=== PATIENT | male | born 1985 | race Caucasian/White ===

== ENCOUNTER 2018-12-24 16:17 | Emergency (ER) | payer BC ==
[~2018-12-24] VITALS: Ht 172.7 cm; Wt 115.7 kg
--- NOTE | ~2018-12-24 | EKG ---
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
[2018-12-24] MEDS ORDERED: NEXIUM40 MG PO (16:29)
[2018-12-24 17:03] LABS: BASO % 0.5 % (0.0-1.0); EOS # 0.3 10*3/uL (0.0-0.4); EOS % 3.1 % (1.0-4.0); HEMATOCRIT 45.7 % (42.0-52.0); HEMOGLOBIN 15.7 g/dl (14.0-18.0); LYMPH # 2.3 10*3/uL (1.3-4.4); LYMPH % 27.7 % (27.0-41.0); MEAN CELL VOLUME 89.3 fl (80.0-94.0); MEAN CORPUSCULAR HGB 30.7 pg (27.0-31.0); MEAN CORPUSCULAR HGB CONC 34.4 g/dl (33.0-37.0); MEAN PLATELET VOLUME 9.4 fl (9.6-12.3); MONO # 0.7 10*3/uL (0.1-1.0); MONO % 7.8 % (3.0-9.0); NEUT % 60.2 % (47.0-73.0); PLATELET COUNT AUTOMATED 236 10*3/uL (130-400); RED BLOOD COUNT 5.12 10*6/uL (4.50-5.90); RED CELL DISTRI WIDTH 12.6 % (0-14.5); WHITE BLOOD COUNT 8.4 10*3/uL (4.8-10.8)
[2018-12-24 17:14] LABS: ACT PARTIAL THROMBO TIME 27.9 SECONDS (20.0-32.1); INTERNATIONAL NORM RATIO 0.9 (2.0-3.5)
[2018-12-24 17:20] LABS: ALBUMIN 3.9 gm/dl (3.1-4.5); ALKALINE PHOSPHATASE 103 U/L (45-117); BUN 13 mg/dl (7-24); CHLORIDE 107 mmol/L (98-107); CREATININE 1.06 mg/dL (0.70-1.30); LIPASE 91 U/L (73-393); POTASSIUM 3.9 mmol/L (3.5-5.1); SGOT/AST 31 IU/L (3-35); SGPT/ALT 76 U/L (12-78); SODIUM 140 mmol/L (136-145)
[2018-12-24 17:37] LABS: NT-proBNP < 5.00 pg/mL (0-125); TROPONIN I < 0.015 ng/ml (<0.045)
== END 2018-12-24 18:44 | disposition home or self-care (01) ==
LOC: ED 16:17
PROVIDERS: Emergency Medicine
DX: R51 Headache (principal); R03.0 Elevated blood-pressure reading, without diagnosis of hypertension; Z79.899 Other long term (current) drug therapy

== ENCOUNTER 2018-12-30 12:21 | Emergency (ER) | payer OTHER, BC ==
[~2018-12-30] VITALS: Ht 172.7 cm; Wt 113.4 kg
[~2018-12-30 12:21] MED LIST: NEXIUM40 MG PO
[2018-12-30 12:53] LABS: BASO # 0.1 10*3/uL (0.0-0.1); BASO % 0.6 % (0.0-1.0); EOS # 0.3 10*3/uL (0.0-0.4); EOS % 3.3 % (1.0-4.0); HEMATOCRIT 48.7 % (42.0-52.0); HEMOGLOBIN 16.5 g/dl (14.0-18.0); LYMPH # 2.6 10*3/uL (1.3-4.4); LYMPH % 29.6 % (27.0-41.0); MEAN CELL VOLUME 90.5 fl (80.0-94.0); MEAN CORPUSCULAR HGB 30.7 pg (27.0-31.0); MEAN CORPUSCULAR HGB CONC 33.9 g/dl (33.0-37.0); MEAN PLATELET VOLUME 9.4 fl (9.6-12.3); MONO # 0.8 10*3/uL (0.1-1.0); MONO % 9.1 % (3.0-9.0); NEUT # 4.9 10*3/uL (2.3-7.9); NEUT % 56.1 % (47.0-73.0); PLATELET COUNT AUTOMATED 228 10*3/uL (130-400); RED BLOOD COUNT 5.38 10*6/uL (4.50-5.90); RED CELL DISTRI WIDTH 12.6 % (0-14.5); WHITE BLOOD COUNT 8.8 10*3/uL (4.8-10.8)
[2018-12-30 13:08] LABS: ALBUMIN 4.1 gm/dl (3.1-4.5); ALKALINE PHOSPHATASE 95 U/L (45-117); BUN 9 mg/dl (7-24); CHLORIDE 106 mmol/L (98-107); CREATININE 0.95 mg/dL (0.70-1.30); POTASSIUM 3.9 mmol/L (3.5-5.1); SGOT/AST 21 IU/L (3-35); SGPT/ALT 71 U/L (12-78); SODIUM 140 mmol/L (136-145); TOTAL PROTEIN 7.4 gm/dL (6.4-8.2)
== END 2018-12-30 14:11 | disposition home or self-care (01) ==
LOC: ED 12:21
PROVIDERS: Nurse Practitioner Family
DX: R51 Headache (principal); Z79.899 Other long term (current) drug therapy

== ENCOUNTER 2019-03-11 22:24 | Emergency (ER) | payer OTHER, BC ==
[~2019-03-11] VITALS: Ht 172.7 cm; Wt 117.9 kg
[2019-03-11 23:04] LABS: BILIRUBIN NEGATIVE (NEGATIVE); BLOOD NEGATIVE (NEGATIVE); CLARITY SL CLOUDY (CLEAR); COLOR YELLOW (YELLOW); GLUCOSE NEGATIVE (NEGATIVE); KETONE NEGATIVE (NEGATIVE); LEUKO ESTERASE NEGATIVE (NEGATIVE); NITRITE NEGATIVE (NEGATIVE); SPECIFIC GRAVITY >= 1.030 (1.005-1.030); UROBILINOGEN 0.2 E.U./dl (0.2-1.0)
[2019-03-11 23:14] LABS: MUCOUS TRACE
[2019-03-11 23:15] LABS: WBC 0-2 wbc/hpf (0-5)
[2019-03-11 23:22] LABS: BASO # 0.1 10*3/uL (0.0-0.1); BASO % 0.5 % (0.0-1.0); EOS # 0.2 10*3/uL (0.0-0.4); HEMOGLOBIN 15.7 g/dl (14.0-18.0); LYMPH % 30.9 % (27.0-41.0); MEAN CELL VOLUME 92.2 fl (80.0-94.0); MEAN CORPUSCULAR HGB 30.8 pg (27.0-31.0); MEAN CORPUSCULAR HGB CONC 33.4 g/dl (33.0-37.0); MEAN PLATELET VOLUME 9.5 fl (9.6-12.3); MONO # 0.8 10*3/uL (0.1-1.0); MONO % 8.3 % (3.0-9.0); NEUT # 5.7 10*3/uL (2.3-7.9); NEUT % 57.8 % (47.0-73.0); PLATELET COUNT AUTOMATED 237 10*3/uL (130-400); RED CELL DISTRI WIDTH 12.8 % (0-14.5); WHITE BLOOD COUNT 9.8 10*3/uL (4.8-10.8)
[2019-03-11 23:33] LABS: ALBUMIN 3.9 gm/dl (3.1-4.5); ALKALINE PHOSPHATASE 100 U/L (45-117); BUN 17 mg/dl (7-24); CHLORIDE 110 mmol/L (98-107); CREATININE 1.23 mg/dL (0.70-1.30); POTASSIUM 3.5 mmol/L (3.5-5.1); SGOT/AST 34 IU/L (3-35); SGPT/ALT 98 U/L (12-78); SODIUM 142 mmol/L (136-145); TOTAL PROTEIN 6.9 gm/dL (6.4-8.2)
[2019-03-12 00:15] LABS: LIPASE 86 U/L (73-393)
== END 2019-03-12 00:36 | disposition home or self-care (01) ==
LOC: ED 22:24
PROVIDERS: Emergency Medicine
DX: K52.9 Noninfective gastroenteritis and colitis, unspecified (principal); R10.9 Unspecified abdominal pain; Z87.442 Personal history of urinary calculi; Z79.899 Other long term (current) drug therapy

== ENCOUNTER → 2019-03-30 | Day surgery (SDC) | payer OTHER, BC ==
[~2019-03-30] VITALS: Ht 172.7 cm; Wt 117.9 kg
[2019-03-30 07:06] VITALS: BP 131/87
[2019-03-30 08:04] VITALS: BP 105/63
[2019-03-30 08:19] VITALS: BP 101/61
[2019-03-30 08:34] VITALS: BP 110/73
== END | disposition home or self-care (01) ==
LOC: SDC 03-26 09:30
DX: K21.9 Gastro-esophageal reflux disease without esophagitis (principal); I10 Essential (primary) hypertension; K30 Functional dyspepsia; E66.01 Morbid (severe) obesity due to excess calories; Z68.41 Body mass index [BMI] 40.0-44.9, adult; Z79.899 Other long term (current) drug therapy; Z98.890 Other specified postprocedural states; Z83.3 Family history of diabetes mellitus; Z82.49 Family history of ischemic heart disease and other diseases of the circulatory system; Z82.5 Family history of asthma and other chronic lower respiratory diseases; Z87.891 Personal history of nicotine dependence

== ENCOUNTER → 2019-05-01 | Day surgery (SDC) | payer OTHER, BC ==
[~2019-05-01] VITALS: Ht 172.7 cm; Wt 120.2 kg
[~2019-05-01] MED LIST changes: +AMLODIPINE BESYL5 MG PO
[2019-05-01 15:37] VITALS: BP 133/94
[2019-05-01 17:10] VITALS: BP 114/73
[2019-05-01 17:25] VITALS: BP 143/79
[2019-05-01 17:39] VITALS: BP 143/79
[2019-05-01 17:46] VITALS: BP 130/84
== END | disposition home or self-care (01) ==
LOC: SDC 04-29 08:45
DX: R10.9 Unspecified abdominal pain (principal); K21.9 Gastro-esophageal reflux disease without esophagitis; I10 Essential (primary) hypertension; K44.9 Diaphragmatic hernia without obstruction or gangrene; K29.50 Unspecified chronic gastritis without bleeding; E66.01 Morbid (severe) obesity due to excess calories; Z68.41 Body mass index [BMI] 40.0-44.9, adult; Z98.890 Other specified postprocedural states; Z79.899 Other long term (current) drug therapy

== ENCOUNTER 2019-06-16 06:42 | Emergency (ER) | payer OTHER, BC ==
[~2019-06-16] VITALS: Ht 172.7 cm; Wt 117.9 kg
[2019-06-16] MEDS ORDERED: PEPCID20 MG PO (08:13)
== END 2019-06-16 08:26 | disposition home or self-care (01) ==
LOC: ED 06:42
DX: K29.00 Acute gastritis without bleeding (principal); K21.9 Gastro-esophageal reflux disease without esophagitis; I10 Essential (primary) hypertension; F17.200 Nicotine dependence, unspecified, uncomplicated; Z79.899 Other long term (current) drug therapy

== ENCOUNTER 2019-07-27 06:25 | Emergency (ER) | payer OTHER, BC ==
[~2019-07-27] VITALS: Ht 172.7 cm; Wt 121.6 kg
[~2019-07-27 06:25] MED LIST changes: +PEPCID20 MG PO
[2019-07-27] MEDS ORDERED: PANTOPRAZOLE SO40 MG PO (06:36)
[2019-07-27 07:15] LABS: BASO % 0.5 % (0.0-1.0); EOS # 0.3 10*3/uL (0.0-0.4); EOS % 3.8 % (1.0-4.0); HEMATOCRIT 47.1 % (42.0-52.0); LYMPH # 2.4 10*3/uL (1.3-4.4); LYMPH % 30.3 % (27.0-41.0); MEAN CELL VOLUME 91.6 fl (80.0-94.0); MEAN CORPUSCULAR HGB 30.7 pg (27.0-31.0); MEAN CORPUSCULAR HGB CONC 33.5 g/dl (33.0-37.0); MEAN PLATELET VOLUME 8.9 fl (9.6-12.3); MONO # 0.8 10*3/uL (0.1-1.0); MONO % 10.4 % (3.0-9.0); NEUT # 4.3 10*3/uL (2.3-7.9); NEUT % 53.5 % (47.0-73.0); PLATELET COUNT AUTOMATED 209 10*3/uL (130-400); RED BLOOD COUNT 5.14 10*6/uL (4.50-5.90); RED CELL DISTRI WIDTH 12.9 % (0-14.5)
[2019-07-27 07:30] LABS: ALBUMIN 3.6 gm/dl (3.1-4.5); ALKALINE PHOSPHATASE 92 U/L (45-117); BUN 16 mg/dl (7-24); CHLORIDE 108 mmol/L (98-107); CREATININE 1.01 mg/dL (0.70-1.30); LIPASE 88 U/L (73-393); SGOT/AST 46 IU/L (3-35); SGPT/ALT 122 U/L (12-78); SODIUM 140 mmol/L (136-145); TOTAL PROTEIN 7.1 gm/dL (6.4-8.2)
[2019-07-27 07:34] LABS: TROPONIN I < 0.015 ng/ml (<0.045)
[2019-07-27] MEDS ORDERED: ZITHROMAX250 MG PO (08:34)
== END 2019-07-27 08:43 | disposition home or self-care (01) ==
LOC: ED 06:25
PROVIDERS: Emergency Medicine
DX: J20.9 Acute bronchitis, unspecified (principal); R94.5 Abnormal results of liver function studies; H92.02 Otalgia, left ear; I10 Essential (primary) hypertension; K21.9 Gastro-esophageal reflux disease without esophagitis; Z79.899 Other long term (current) drug therapy

== ENCOUNTER 2019-12-04 10:51 | Emergency (ER) | payer OTHER ==
[~2019-12-04] VITALS: Wt 117.9 kg
[~2019-12-04 10:51] MED LIST changes: +PANTOPRAZOLE SO40 MG PO; +ZITHROMAX250 MG PO
[2019-12-04] MEDS ORDERED: ZITHROMAX250 MG PO (13:33)
== END 2019-12-04 13:38 | disposition home or self-care (01) ==
LOC: ED 10:51
DX: J40 Bronchitis, not specified as acute or chronic (principal); I10 Essential (primary) hypertension; K21.9 Gastro-esophageal reflux disease without esophagitis; F17.200 Nicotine dependence, unspecified, uncomplicated; Z79.899 Other long term (current) drug therapy; Z20.828 Contact with and (suspected) exposure to other viral communicable diseases

== ENCOUNTER 2020-04-13 13:40 | Emergency (ER) | payer OTHER ==
[~2020-04-13] VITALS: Ht 172.7 cm; Wt 122.5 kg
[2020-04-13] MEDS ORDERED: VALTREX1000 MG PO (14:10)
[2020-04-13] MEDS ORDERED: DOXYCYCLINE100 M3 PO (14:10)
[2020-04-13 14:20] LABS: BILIRUBIN Negative (Negative); BLOOD Negative (Negative); CLARITY Clear (Clear); COLOR Yellow (Yellow); GLUCOSE Negative (Negative); KETONE Negative (Negative); LEUKO ESTERASE Negative (Negative); NITRITE Negative (Negative); PH 6.5 (4.5-8.0); SPECIFIC GRAVITY 1.025 (1.001-1.030); UROBILINOGEN 0.2 E.U./dl (0.0-1.0)
[2020-04-13 14:28] LABS: BACTERIA TRACE; EPITHELIAL CELLS 0-2; RBC 0-2 rbc/hpf (0-2); WBC 0-2 wbc/hpf (0-5)
== END 2020-04-13 14:31 | disposition home or self-care (01) ==
LOC: ED 13:40
PROVIDERS: Physician Assistant
DX: A60.01 Herpesviral infection of penis (principal); Z20.2 Contact with and (suspected) exposure to infections with a predominantly sexual mode of transmission; Z79.899 Other long term (current) drug therapy

== ENCOUNTER 2020-06-15 12:40 | Emergency (ER) | payer OTHER ==
[~2020-06-15] VITALS: Wt 122.5 kg
[~2020-06-15 12:40] MED LIST changes: +DOXYCYCLINE100 M3 PO; +VALTREX1000 MG PO
== END 2020-06-15 15:17 | disposition home or self-care (01) ==
LOC: ED 12:40
DX: B34.9 Viral infection, unspecified (principal); I10 Essential (primary) hypertension; K21.9 Gastro-esophageal reflux disease without esophagitis; Z79.899 Other long term (current) drug therapy; Z20.822 Contact with and (suspected) exposure to COVID-19

== ENCOUNTER 2020-11-24 14:08 | Inpatient (IN) | payer OTHER ==
[~2020-11-24] VITALS: Ht 172.7 cm; Wt 124.3 kg
[2020-11-24 14:33] VITALS: BP 120/77
[2020-11-24 15:36] LABS: BASO # 0.1 10*3/uL (0.0-0.1); BASO % 0.6 % (0.0-1.0); EOS # 0.4 10*3/uL (0.0-0.4); EOS % 4.1 % (1.0-4.0); HEMATOCRIT 46.8 % (42.0-52.0); LYMPH # 2.7 10*3/uL (1.3-4.4); LYMPH % 27.6 % (27.0-41.0); MEAN CELL VOLUME 89.5 fl (80.0-94.0); MEAN CORPUSCULAR HGB 30.8 pg (27.0-31.0); MEAN CORPUSCULAR HGB CONC 34.4 g/dl (33.0-37.0); MONO % 9.8 % (3.0-9.0); NEUT # 5.5 10*3/uL (2.3-7.9); NEUT % 56.1 % (47.0-73.0); PLATELET COUNT AUTOMATED 238 10*3/uL (130-400); RED BLOOD COUNT 5.23 10*6/uL (4.50-5.90); RED CELL DISTRI WIDTH 12.3 % (0-14.5); WHITE BLOOD COUNT 9.7 10*3/uL (4.8-10.8)
[2020-11-24 16:00] LABS: ALBUMIN 3.7 gm/dl (3.1-4.5); ALKALINE PHOSPHATASE 93 U/L (45-117); BUN 9 mg/dl (7-24); CHLORIDE 108 mmol/L (98-107); CREATININE 0.92 mg/dL (0.70-1.30); LIPASE 99 U/L (73-393); SGOT/AST 34 IU/L (3-35); SGPT/ALT 104 U/L (12-78); SODIUM 141 mmol/L (136-145)
[2020-11-24 16:02] LABS: TROPONIN I < 0.015 ng/ml (<0.045)
[2020-11-24 18:48] VITALS: BP 137/70
[2020-11-24] MEDS ORDERED: NEXIUM40 MG PO (19:40)
[2020-11-24 19:41] VITALS: BP 120/65
[2020-11-24 22:20] VITALS: BP 123/70
[2020-11-24 23:32] VITALS: BP 120/68
[2020-11-25 05:03] VITALS: BP 140/73
[2020-11-25 06:19] LABS: ALBUMIN 3.2 gm/dl (3.1-4.5); ALKALINE PHOSPHATASE 92 U/L (45-117); BUN 12 mg/dl (7-24); CHLORIDE 106 mmol/L (98-107); CHOLESTEROL 188 mg/dL (<200); CREATININE 0.97 mg/dL (0.70-1.30); FREE T4 0.77 ng/dl (0.76-1.46); LDL CHOLESTEROL 93 mg/dL (9-159); SGOT/AST 41 IU/L (3-35); SGPT/ALT 95 U/L (12-78); SODIUM 141 mmol/L (136-145); TOTAL PROTEIN 6.6 gm/dL (6.4-8.2); TRIGLYCERIDES 382 mg/dl (<150)
[2020-11-25 06:24] LABS: THYROID STIM HORMONE (HS) 0.784 uIU/ml (0.358-4.75)
[2020-11-25 06:30] LABS: POTASSIUM 4.1 mmol/L (3.5-5.1)
[2020-11-25 06:37] LABS: BASO # 0.1 10*3/uL (0.0-0.1); BASO % 0.7 % (0.0-1.0); EOS # 0.4 10*3/uL (0.0-0.4); HEMATOCRIT 47.2 % (42.0-52.0); LYMPH # 3.1 10*3/uL (1.3-4.4); LYMPH % 35.3 % (27.0-41.0); MEAN CELL VOLUME 92.2 fl (80.0-94.0); MEAN CORPUSCULAR HGB 30.5 pg (27.0-31.0); MEAN CORPUSCULAR HGB CONC 33.1 g/dl (33.0-37.0); MEAN PLATELET VOLUME 9.6 fl (9.6-12.3); MONO # 0.8 10*3/uL (0.1-1.0); NEUT # 4.2 10*3/uL (2.3-7.9); PLATELET COUNT AUTOMATED 229 10*3/uL (130-400); RED BLOOD COUNT 5.12 10*6/uL (4.50-5.90); RED CELL DISTRI WIDTH 12.2 % (0-14.5); WHITE BLOOD COUNT 8.7 10*3/uL (4.8-10.8)
[2020-11-25 07:32] VITALS: BP 142/73
== END 2020-11-25 13:34 | disposition left against medical advice (07) | DRG 309 ==
LOC: ED 14:08 → EDHOLD 17:45
PROVIDERS: Emergency Medicine; Internal Medicine; ADMIT Student in an Organized Health Care Education/Training Program; ATTEND Student in an Organized Health Care Education/Training Program
PROC: 4A02XM4 Measurement of Cardiac Total Activity, External Approach (ICD-10-PCS; principal; 2020-11-25)
DX: R00.2 Palpitations (principal); Z68.41 Body mass index [BMI] 40.0-44.9, adult; I10 Essential (primary) hypertension; K21.9 Gastro-esophageal reflux disease without esophagitis; E87.8 Other disorders of electrolyte and fluid balance, not elsewhere classified; I49.3 Ventricular premature depolarization; E83.41 Hypermagnesemia; E78.1 Pure hyperglyceridemia; R74.01 Elevation of levels of liver transaminase levels; R73.9 Hyperglycemia, unspecified; E66.01 Morbid (severe) obesity due to excess calories; F17.210 Nicotine dependence, cigarettes, uncomplicated; E78.5 Hyperlipidemia, unspecified; Z79.82 Long term (current) use of aspirin; Z79.899 Other long term (current) drug therapy; Z83.3 Family history of diabetes mellitus; Z71.6 Tobacco abuse counseling; Z53.29 Procedure and treatment not carried out because of patient's decision for other reasons

== ENCOUNTER 2020-12-29 19:40 | Emergency (ER) | payer OTHER ==
[~2020-12-29] VITALS: Ht 172.7 cm; Wt 122.5 kg
[2020-12-29] MEDS ORDERED: PREDNISONE20 M1 PO (20:28)
== END 2020-12-29 21:11 | disposition home or self-care (01) ==
LOC: ED 19:40
DX: L23.7 Allergic contact dermatitis due to plants, except food (principal); Z79.899 Other long term (current) drug therapy

== ENCOUNTER 2021-03-06 13:50 | Emergency (ER) | payer OTHER ==
[~2021-03-06 13:50] MED LIST changes: +PREDNISONE20 M1 PO
== END 2021-03-06 18:56 | disposition left against medical advice (07) ==
LOC: ED 13:50
DX: Z53.21 Procedure and treatment not carried out due to patient leaving prior to being seen by health care provider (principal)

== ENCOUNTER 2021-03-07 20:50 | Emergency (ER) | payer OTHER ==
[~2021-03-07] VITALS: Ht 172.7 cm; Wt 131.5 kg
[2021-03-08] MEDS ORDERED: METHOCARBAMOL750 M1 PO (03:35)
[2021-03-08] MEDS ORDERED: NAPROXEN250 MG PO (03:35)
== END 2021-03-08 04:00 | disposition home or self-care (01) ==
LOC: ED 20:50
DX: S39.012A Strain of muscle, fascia and tendon of lower back, initial encounter (principal); M54.16 Radiculopathy, lumbar region; Z79.899 Other long term (current) drug therapy; W18.40XA Slipping, tripping and stumbling without falling, unspecified, initial encounter; Y93.89 Activity, other specified; Y92.89 Other specified places as the place of occurrence of the external cause; Y99.8 Other external cause status

== ENCOUNTER 2021-04-24 15:09 | Emergency (ER) | payer OTHER ==
[~2021-04-24 15:09] MED LIST changes: +METHOCARBAMOL750 M1 PO; +NAPROXEN250 MG PO
[2021-04-24] MEDS ORDERED: AUGMENTIN 875875 MG PO (17:03)
[2021-04-24] MEDS ORDERED: FLONASE ALLERG9.9 ML NAS (17:03)
== END 2021-04-24 19:04 | disposition home or self-care (01) ==
LOC: ED 15:09
DX: J32.9 Chronic sinusitis, unspecified (principal); Z20.822 Contact with and (suspected) exposure to COVID-19; I10 Essential (primary) hypertension; K21.9 Gastro-esophageal reflux disease without esophagitis; F17.200 Nicotine dependence, unspecified, uncomplicated; Z79.899 Other long term (current) drug therapy

== ENCOUNTER 2021-05-06 01:39 | Emergency (ER) | payer OTHER ==
[~2021-05-06] VITALS: Ht 172.7 cm; Wt 127.0 kg
[~2021-05-06 01:39] MED LIST changes: +AUGMENTIN 875875 MG PO; +FLONASE ALLERG9.9 ML NAS
[2021-05-06 03:24] LABS: BASO % 0.5 % (0.0-1.0); EOS # 0.2 10*3/uL (0.0-0.4); EOS % 1.9 % (1.0-4.0); LYMPH # 1.3 10*3/uL (1.3-4.4); LYMPH % 15.7 % (27.0-41.0); MEAN CORPUSCULAR HGB 30.3 pg (27.0-31.0); MONO # 0.9 10*3/uL (0.1-1.0); NEUT # 5.8 10*3/uL (2.3-7.9); NEUT % 69.8 % (47.0-73.0); PLATELET COUNT AUTOMATED 208 10*3/uL (130-400); RED BLOOD COUNT 5.11 10*6/uL (4.50-5.90); RED CELL DISTRI WIDTH 12.5 % (0-14.5); WHITE BLOOD COUNT 8.3 10*3/uL (4.8-10.8)
[2021-05-06 03:39] LABS: ALBUMIN 3.7 gm/dl (3.1-4.5); ALKALINE PHOSPHATASE 105 U/L (45-117); BUN 12 mg/dl (7-24); CHLORIDE 106 mmol/L (98-107); CREATININE 1.17 mg/dL (0.70-1.30); SGOT/AST 53 IU/L (3-35); SGPT/ALT 126 U/L (12-78); SODIUM 139 mmol/L (136-145); TOTAL PROTEIN 7.5 gm/dL (6.4-8.2)
== END 2021-05-06 05:04 | disposition home or self-care (01) ==
LOC: ED 01:39
PROVIDERS: Emergency Medicine
DX: U07.1 COVID-19 (principal); R73.9 Hyperglycemia, unspecified; I10 Essential (primary) hypertension; E78.5 Hyperlipidemia, unspecified; E66.01 Morbid (severe) obesity due to excess calories; F17.210 Nicotine dependence, cigarettes, uncomplicated; K21.9 Gastro-esophageal reflux disease without esophagitis; Z98.890 Other specified postprocedural states; Z79.899 Other long term (current) drug therapy

== ENCOUNTER 2021-12-01 12:38 | Emergency (ER) | payer SELFPAY ==
[~2021-12-01] VITALS: Ht 172.7 cm; Wt 122.5 kg
== END 2021-12-01 16:21 | disposition home or self-care (01) ==
LOC: ED 12:38
DX: S20.212A Contusion of left front wall of thorax, initial encounter (principal); Z79.899 Other long term (current) drug therapy; Z79.2 Long term (current) use of antibiotics; Z98.890 Other specified postprocedural states; W10.8XXA Fall (on) (from) other stairs and steps, initial encounter; Y93.89 Activity, other specified; Y92.89 Other specified places as the place of occurrence of the external cause; Y99.8 Other external cause status

== ENCOUNTER 2022-04-25 17:22 | Emergency (ER) | payer OTHER ==
[~2022-04-25] VITALS: Ht 172.7 cm; Wt 127.0 kg
[2022-04-25] MEDS ORDERED: MEDROL DOSEPAK4 MG PO (19:27)
[2022-04-25] MEDS ORDERED: CYCLOBENZAPRINE5 M3 PO (19:27)
== END 2022-04-25 19:36 | disposition home or self-care (01) ==
LOC: ED 17:22
DX: M54.50 Low back pain, unspecified (principal); Z98.890 Other specified postprocedural states; Z87.891 Personal history of nicotine dependence

== ENCOUNTER 2023-02-06 14:55 | Emergency (ER) | payer OTHER ==
[~2023-02-06] VITALS: Wt 127.0 kg
[~2023-02-06 14:55] MED LIST changes: +CYCLOBENZAPRINE5 M3 PO; +MEDROL DOSEPAK4 MG PO
[2023-02-06] MEDS ORDERED: ONDANSETRON4 MG SL (15:41)
== END 2023-02-06 15:54 | disposition home or self-care (01) ==
LOC: ED 14:55
DX: K90.49 Malabsorption due to intolerance, not elsewhere classified (principal); R11.2 Nausea with vomiting, unspecified; R19.7 Diarrhea, unspecified; K21.9 Gastro-esophageal reflux disease without esophagitis; E87.8 Other disorders of electrolyte and fluid balance, not elsewhere classified; E78.5 Hyperlipidemia, unspecified; R73.9 Hyperglycemia, unspecified; E83.41 Hypermagnesemia; I10 Essential (primary) hypertension; Z98.890 Other specified postprocedural states; Z72.0 Tobacco use

== ENCOUNTER 2023-04-21 17:20 | Emergency (ER) | payer OTHER ==
[~2023-04-21] VITALS: Ht 172.7 cm; Wt 122.5 kg
[~2023-04-21 17:20] MED LIST changes: +ONDANSETRON4 MG SL
[2023-04-21] MEDS ORDERED: METFORMIN HYD1000 MG PO (17:31)
[2023-04-21] MEDS ORDERED: NEXIUM40 MG PO (17:31)
[2023-04-21] MEDS ORDERED: PREDNISONE50 MG PO (18:38)
[2023-04-21] MEDS ORDERED: AMOX-CLAV 875-1 EACH PO (18:38)
== END 2023-04-21 18:57 | disposition home or self-care (01) ==
LOC: ED 17:20
DX: J32.9 Chronic sinusitis, unspecified (principal); K21.9 Gastro-esophageal reflux disease without esophagitis; I10 Essential (primary) hypertension; R11.0 Nausea; Z98.890 Other specified postprocedural states; Z72.0 Tobacco use

== ENCOUNTER 2023-06-24 03:39 | Emergency (ER) | payer OTHER ==
[~2023-06-24] VITALS: Ht 172.7 cm; Wt 122.5 kg
[~2023-06-24 03:39] MED LIST changes: +AMOX-CLAV 875-1 EACH PO; +METFORMIN HYD1000 MG PO; +PREDNISONE50 MG PO
[2023-06-24] MEDS ORDERED: TAMIFLU 75MG CA75 MG PO (04:53)
[2023-06-24] MEDS ORDERED: BENZONATATE100 M1 PO (04:53)
[2023-06-24] MEDS ORDERED: Oseltamivir Phosphate 75 MG CAP PO ONE (04:55)
[2023-06-24] MEDS ORDERED: BENZONATATE 100 MG CAP PO ONE (04:55)
== END 2023-06-24 05:10 | disposition home or self-care (01) ==
LOC: ED 03:39
DX: J10.1 Influenza due to other identified influenza virus with other respiratory manifestations (principal); Z20.822 Contact with and (suspected) exposure to COVID-19; K21.9 Gastro-esophageal reflux disease without esophagitis; I10 Essential (primary) hypertension; E78.5 Hyperlipidemia, unspecified; E83.41 Hypermagnesemia; Z98.890 Other specified postprocedural states; Z72.0 Tobacco use